=== PATIENT | male | born 1950 | race Caucasian/White ===

== ENCOUNTER → 2017-06-09 | Outpatient (CLI) | payer OTHER | LOC: FIMAGING 19:20 | PROVIDERS: ATTEND Physician Assistant Surgical | DX: M50.323 Other cervical disc degeneration at C6-C7 level (principal); M12.88 Other specific arthropathies, not elsewhere classified, other specified site; M99.71 Connective tissue and disc stenosis of intervertebral foramina of cervical region; Z98.1 Arthrodesis status ==

== ENCOUNTER → 2018-07-26 | Outpatient (CLI) | payer OTHER, MEDICARE | LOC: BMCIMAGING 10:09 ==

== ENCOUNTER → 2018-08-09 | Outpatient (CLI) | payer OTHER, MEDICARE ==
[~2018-08-09] MED LIST: IOPAMIDOL (ISOVUE-300) 100 ML BTL ONE
== END ==
LOC: FIMAGING 06:48
PROVIDERS: ATTEND Physician Assistant Medical
DX: R10.32 Left lower quadrant pain (principal)
CPT/HCPCS: 74177; Q9967; 82565-PO